=== PATIENT | female | born 1980 | race Two or more races ===

== ENCOUNTER 2020-10-03 06:15 | Outpatient (REF) | payer SELFPAY | END 2020-10-03 06:16 | disposition home or self-care (01) | LOC: HO.LAB 06:15 | PROVIDERS: Visit Provider Internal Medicine | DX: Z20.828 Contact with and (suspected) exposure to other viral communicable diseases (principal) | CPT/HCPCS: C9803; U0003 ==

== ENCOUNTER 2021-04-27 13:43 | Emergency (ER) | payer SELFPAY ==
[2021-04-27 13:49] VITALS: BP 122/96; PULSE 100; RESP 18; TEMP 36.6; O2SAT 98; BMI 36.1
--- NOTE | 2021-04-27 15:40 | ED_ITS ---
HPI - Back Pain/Injury General Chief Complaint: Back Pain/Injury Stated Complaint: back injury Time Seen by Provider: 04/27/21 15:05 Source: patient Mode of arrival: ambulatory History of Present Illness HPI Narrative: 40-year-old female No significant past medical history presenting to the ED complaining of left-sided low back pain radiating to left buttock s/p bending down to grab something on the ground out work 5 days ago. Denies direct injury/trauma or fall. Reports sharp/shooting pain. Has been taking Tylenol/ibuprofen with little relief. Denies numbness, tingling, weakness, urinary incontinence/retention, fever, chills MD elicited complaint: back pain Related Data Previous Rx's Medication Instructions Recorded acetaminophen [Tylenol Extra 500 mg PO Q6H PRN #20 tab 04/27/21 Strength] cyclobenzaprine 5 mg PO Q8H PRN 5 Days #14 tab 04/27/21 lidocaine [Lidoderm] 1 patch TOPICAL DAILY PRN #30 ea 04/27/21 MDD remove after 12 hours naproxen 500 mg PO BID PRN 10 Days #20 tab 04/27/21 Allergies Allergy/AdvReac Type Severity Reaction Status Date / Time No Known Allergies Allergy Unverified 07/24/20 18:26 Review of Systems Review of Systems: Constitutional: No Fever, No Chills Cardiovascular: No Chest Pain, No SOB Respiratory: No Cough, No Sputum, No Wheezing Gastrointestinal: No Nausea, No Abdominal pain Genitourinary: No Urinary Incontinence/retention Musculoskeletal: + joint pain, No Myalgias, No Joint Swelling Skin: No Skin Lesions, No rash Neuro: No Weakness, No Numbness, No Paresthesias Yes all other systems are reviewed and are negative Neurologic: Denies Sensory deficit (Neuro) [facility] Past Medical History Attestation statement: The following information was validated with the patient. Medical History (Updated 04/27/21 @ 15:50 by CAMRYN Garcia) No known health problems Social History Social History Advance Directives: Yes Advance Directives Information Provided: No Advance Directives on File: No Patient : No Physical Exam Vital Signs: Vital Signs: Last Vital Signs Temp 97.9 F 04/27/21 13:49 Pulse 100 04/27/21 13:49 Resp 18 04/27/21 13:49 BP 122/96 H 04/27/21 13:49 Pulse Ox 98 04/27/21 13:49 Body Mass Index 36.1 Const: General: cooperative and healthy appearing Orientation/consciousness: patient oriented x3 Limitations: no limitations HENMT: Head: Yes normal to inspection Ears: hearing grossly normal bilaterally General nose exam: Normal external nose present Face and sinus: Yes normal facial exam Eyes: General: appearance normal, both eyes and all related structures EOM: EOMs intact bilaterally Neck: Neck: Yes normal visual inspection Resp: Effort & Inspection: normal respiratory effort Cardio: Rate: regular rate Peripheral pulses: dorsalis pedis present Back/Spine/Pelvis: Other: No midline thoracic/lumbar spinous tenderness or step-off/deformity. + left-sided lower lumbar and buttock MSK tenderness to palpation Skin: Rashes: no rashes Wounds: no wounds Neuro: Other: Saddle anesthesia, strength intact throughout General: patient oriented x3, tone normal and moves all extremities Gait exam (Neuro): Normal gait present Motor exam (neuro): 5/5 motor strength present throughout Sensory Exam: No Sensory deficit (Neuro) Extrem: General: Yes normal to inspection MDM - Back Pain/Injury MDM Narrative Medical decision making narrative: 40-year-old female No significant past medical history presenting to the ED complaining of left-sided low back pain radiating to left buttock s/p bending down to grab something on the ground out work 5 days ago. On exam VS, NAD/well-appearing, no midline spinous tenderness throughout, no red flag symptoms, likely MSK pain/strain, low concern for cauda equina/cord compression or fracture Discharge Plan Discharge Clinical Impression: Strain of lumbar region Patient Disposition: Home, Self-Care Instructions: Back Pain (ED) Additional Instructions: Your pain is likely musculoskeletal Flexeril is a muscle relaxer, take at night as it makes you drowsy, do not drive, drink alcohol, or operate machinery while taking it Naproxen as an anti-inflammatory / pain medication, take with food Lidoderm patches are numbing patches, apply to painful area In addition take Tylenol at home If symptoms persist or worsen, pain becomes unbearable, you developed urinary retention or incontinence, or weakness return to the ED Prescriptions: New acetaminophen [Tylenol Extra Strength] 500 mg tablet 500 mg PO Q6H PRN (Reason: pain or fever) Qty: 20 RF: 0 lidocaine [Lidoderm] 5 % adhesive patch,medicated 1 patch topical DAILY MDD remove after 12 hours PRN (Reason: pain) Qty: 30 RF: 0 naproxen 500 mg tablet 500 mg PO BID PRN (Reason: pain) 10 Days Qty: 20 RF: 0 cyclobenzaprine 5 mg tablet 5 mg PO Q8H PRN (Reason: pain (scale score 7-10)) 5 Days Qty: 14 RF: 0 Referrals: Physician,None [Primary Care Provider] - 2 days Stand Alone Forms: Work/School Release
[2021-04-27] MEDS: Cyclobenzaprine HCl 5 MG TABLET PO (15:42)
[2021-04-27] MEDS: Lidocaine 4 % Patch ADH..PATCH 1 PATCH TRANSDERMA (15:42)
== END 2021-04-27 15:59 | disposition home or self-care (01) ==
PROVIDERS: Emergency Provider Emergency Medicine
DX: S39.012A Strain of muscle, fascia and tendon of lower back, initial encounter (principal); X50.1XXA Overexertion from prolonged static or awkward postures, initial encounter; Y93.9 Activity, unspecified; Y92.9 Unspecified place or not applicable; Y99.9 Unspecified external cause status
CPT/HCPCS: 99283